=== PATIENT | male | born 1965 | race Caucasian/White ===

== ENCOUNTER 2017-01-20 08:28 | Day surgery (SDC) | payer OTHER ==
[2017-01-19 09:23] VITALS: BP 179/98
[2017-01-19 09:24] LABS: ASPARTATE AMINO TRANSFERASE 19 U/L (15-37); BLOOD UREA NITROGEN 17 mg/dL (7-18)
[~2017-01-20] VITALS: Ht 167.6 cm; Wt 153.0 kg
[~2017-01-20 08:28] MED LIST: ALBU8.5H8 INH; ALPR0.254 PO; AMIO200T42 PO; ATOR40TA78 PO; BACL20TA PO; CARV-39 PO; CARV12.52 PO; CHOL2000 PO; CITA20TA5 PO; CLIN300C8 PO; CYAN2000 PO; ENAL10TA PO; ENAL5TAB70 PO; FERR324T18 PO; FURO-93 PO; GLIM4TAB2 PO; GLIP2.5T3 PO; HYDR-3237 PO; HYDR-3240 PO; IMDUR PO; ISOS30TA21 PO; ISOS30TA8 PO; LEVO125T5 PO; LEVO137T2 PO; LEVO150T5 PO; LISI2.5T PO; METF500T4 PO; METO25TA35 PO; METO5TAB5 PO; OXYC5CAP2 PO; OXYC5TAB3 PO; POTA20PA25 PO; POTA20TA14 PO; POTA8TAB PO; POTA8TAB6 PO; POTASSIUM CHLORIDE PO; PRAM0.255 PO; SACU1TAB4 PO; SIMV20TA PO; SIMV20TA3 PO; SIMV40TA3 PO; SPIR25TA PO; SPIR25TA3 PO; TORS100T4 PO; TORS20TA PO; WARF3TAB7 PO; WARF3TAB7 PO-COUM; WARF5TAB PO; WARF5TAB7 PO; WARF7.5T6 PO
[2017-01-20] MEDS ORDERED: LACTATED RINGERS 1,000 ML IV SCH (09:09)
[2017-01-20] MEDS ORDERED: LIDOCAINE 1%, 2ML ONE (09:11)
[2017-01-20] MEDS ORDERED: LIDOCAINE 1%, 2ML SQ PRN (09:30)
[2017-01-20] MEDS ORDERED: PROPOFOL 10 MG/ML, 50ML ONE (10:01)
[2017-01-20] MEDS ORDERED: ONDANSETRON 2MG/ML, 2ML IVPush PRN (11:00)
[2017-01-20] MEDS ORDERED: MIDAZOLAM 1 MG/ML, 2ML IV PRN (11:00)
[2017-01-20] MEDS ORDERED: PROMETHAZINE 25 MG/ML, 1ML IV PRN (11:00)
[2017-01-20] MEDS ORDERED: METOPROLOL 1 MG/ML, 5ML IV PRN (11:00)
[2017-01-20] MEDS ORDERED: ACETAMINOPHEN 325 MG TABLET PO PRN (11:00)
[2017-01-20] MEDS ORDERED: hydrALAzine 20 MG/ML, 1ML IV PRN (11:00)
[2017-01-20] MEDS ORDERED: ALBUTEROL/IPRATROPIUM 2.5MG/0.5MG, 3 ML NPPB PRN (11:00)
[2017-01-20] MEDS ORDERED: OXYcodone 5 MG/5 ML ORAL.SOL UDC PO PRN (11:00)
== END 2017-01-20 11:50 ==
LOC: OUT 08:28
PROVIDERS: ATTEND Specialist
DX: Z12.11 Encounter for screening for malignant neoplasm of colon (principal); K57.30 Diverticulosis of large intestine without perforation or abscess without bleeding; I25.10 Atherosclerotic heart disease of native coronary artery without angina pectoris; Z95.1 Presence of aortocoronary bypass graft; Z88.1 Allergy status to other antibiotic agents; Z88.0 Allergy status to penicillin
CPT/HCPCS: 36415; 45378; 80053; 82962; 85610; 85730; 93005; J2704

== ENCOUNTER 2019-10-17 10:19 | Outpatient (CLI) | payer MEDICARE ==
[~2019-10-17 10:19] MED LIST changes: -CITA20TA5 PO; +CITA20TA6 PO; -GLIM4TAB2 PO; +GLIM4TAB8 PO; +METF500T17 PO; -METF500T4 PO; +SIMV20TA19 PO; -SIMV20TA3 PO; +SIMV40TA20 PO; -SIMV40TA3 PO; -SPIR25TA3 PO; +SPIR25TA5 PO; +WARF-36 PO; +WARF3TAB52 PO; +WARF3TAB52 PO-COUM; -WARF3TAB7 PO; -WARF3TAB7 PO-COUM; -WARF5TAB PO; +WARF5TAB2 PO; -WARF5TAB7 PO; +WARF7.5T46 PO; -WARF7.5T6 PO
== END 2019-10-17 23:59 | disposition home or self-care (01) ==
LOC: CVU 10:19
PROVIDERS: ATTEND Internal Medicine Cardiovascular Disease
DX: I11.9 Hypertensive heart disease without heart failure (principal); I08.8 Other rheumatic multiple valve diseases
CPT/HCPCS: C8929; Q9957